=== PATIENT | male | born 1950 | race Caucasian/White ===

== ENCOUNTER 2018-05-04 13:40 | Day surgery (SDC) | payer MEDICARE, OTHER ==
[2018-04-29 11:16] VITALS: BMI 34.7
[~2018-05-04 13:40] MED LIST: DEXAMETHASONE SOD PHOSPHATE 10 MG/ML 1 ML VIAL IV ONE; HYDROmorphone 0.5 MG/0.5 ML SYRINGE IVP PRN; LACTATED RINGERS 1,000 ML IV SCH; LIDOCAINE 1% 20 ML VIAL (10MG/ML) FOR IV START INTRADERMA PRN; ONDANSETRON 4 MG/2 ML VIAL IVP ONE; SCOPOLAMINE 1.5MG/72HR PATCH TRANSDERM ONE
[2018-05-04 13:54] VITALS: RESP 16
[2018-05-04] MEDS ORDERED: LIDOCAINE 1% INJ 10MG/ML (20 ML MDV) ONE (14:08)
[2018-05-04] MEDS ORDERED: PROPOFOL 10 MG/ML 20 ML VIAL IV ONE (14:08)
--- NOTE | 2018-05-04 14:14 | P.GSHP ---
History of Present Illness H&P Date: 05/04/18 Chief Complaint: Screening colonoscopy This a 68-year-old male referred from Dr. Hernandez. Patient's today for screening colonoscopy. He denies a significant GI complaints. Past Medical History Past Medical History: No Reported History History of Any Multi-Drug Resistant Organisms: None Reported Past Surgical History: Hernia Repair Additional Past Surgical History / Comment(s): Eye surgery, colonoscopy. Past Anesthesia/Blood Transfusion Reactions: No Reported Reaction Smoking Status: Former smoker - Past Family History Mother Additional Family Medical History / Comment(s): ? Medications and Allergies Home Medications Medication Instructions Recorded Confirmed Type Cholecalciferol [Vitamin D3] 1,000 unit PO DAILY 04/29/18 04/29/18 History Glucosam/Julio Cesar-Msm1/C/George/Bosw 1 each PO DAILY 04/29/18 04/29/18 History [Glucosamine-Chondroitin Tablet] Allergies Allergy/AdvReac Type Severity Reaction Status Date / Time amoxicillin Allergy Itching Verified 04/29/18 10:53 Surgical - Exam Vital Signs Pulse Resp BP Pulse Ox 60 16 161/82 97 05/04/18 13:53 05/04/18 13:53 05/04/18 13:53 05/04/18 13:53 - General well developed, no distress - Eyes PERRL - ENT normal pinna - Neck no masses - Respiratory normal expansion - Cardiovascular Rhythm: regular - Abdomen Abdomen: soft, non tender Assessment and Plan Assessment: We'll perform screening colonoscopy.
--- NOTE | 2018-05-04 14:27 | P.OP ---
Date of Procedure: 05/04/18 Preoperative Diagnosis: Screening colonoscopy Postoperative Diagnosis: Diverticulosis Procedure(s) Performed: Colonoscopy Anesthesia: MAC Surgeon: Juan Carlos Lutz Pathology: none sent Condition: stable Disposition: PACU Description of Procedure: The patient's placed on the endoscopy table in the lateral position. He received IV sedation. Digital rectal exam was performed which revealed no rebound. The flexible colonoscope was then placed patient anus passed throughout the entire colon. The ileocecal valve was visualized. The cecum, ascending and transverse colon appeared normal. In the descending and sigmoid colon there was mild diverticulosis. The scope was then brought back the rectum and this appeared normal. Scope was withdrawn for patient.
[2018-05-04 14:53] VITALS: BP 132/84; PULSE 69
== END 2018-05-04 16:05 | disposition home or self-care (01) ==
LOC: ORWHC2ENDO 13:40
PROVIDERS: ATTEND Surgery
DX: Z12.11 Encounter for screening for malignant neoplasm of colon (principal); K57.30 Diverticulosis of large intestine without perforation or abscess without bleeding; Z87.891 Personal history of nicotine dependence; Z88.0 Allergy status to penicillin
CPT/HCPCS: J2001; J2704; G0121

== ENCOUNTER 2019-01-14 20:35 | Emergency (ER) | payer MEDICARE, OTHER ==
[2019-01-14 21:06] VITALS: RESP 18
--- NOTE | 2019-01-14 21:07 | ED ---
Back Pain HPI - General Chief Complaint: Back Pain/Injury Stated Complaint: Back pain Time Seen by Provider: 01/14/19 21:06 Source: patient Limitations: no limitations - History of Present Illness Initial Comments: Chip is a pleasant 68 yo male presents to the emergency department today for reevaluation of low back pain. Patient reports he has a history of chronic back pain with sciatica down the right leg however since midnight last night he's had significant low back pain with burning pain down his left leg. He reports a similar to previous episodes of sciatica but worse. Patient was seen and evaluated at an urgent care earlier today he had x-rays and was told that he likely just has arthritic changes. He was prescribed a muscle relaxer which she took a dose of with no improvement in his symptoms. - Related Data Home Medications Medication Instructions Recorded Confirmed Glucosam/Julio Cesar-Msm1/C/George/Bosw 1 tab PO DAILY 04/29/18 01/14/19 [Glucosamine-Chondroitin Tablet] Cyclobenzaprine [Flexeril] 10 mg PO BID 01/14/19 01/14/19 Dexamethasone 4 mg PO DAILY 01/14/19 01/14/19 Ferrous Sulfate [Iron] 325 mg PO DAILY 01/14/19 01/14/19 Naproxen 375 mg PO BID PRN 01/14/19 01/14/19 Previous Rx's Medication Instructions Recorded Gabapentin [Neurontin] 300 mg PO TID #30 cap 01/14/19 Lidocaine 5% Patch [Lidoderm] 1 patch TOPICAL DAILY #30 patch 01/14/19 Gabapentin [Neurontin] 300 mg PO TID #30 cap 01/15/19 Allergies Allergy/AdvReac Type Severity Reaction Status Date / Time amoxicillin Allergy Itching Verified 01/14/19 20:55 Review of Systems ROS Statement: Those systems with pertinent positive or pertinent negative responses have been documented in the HPI. ROS Other: All systems not noted in ROS Statement are negative. Past Medical History Past Medical History: No Reported History History of Any Multi-Drug Resistant Organisms: None Reported Past Surgical History: Hernia Repair Additional Past Surgical History / Comment(s): Eye surgery, colonoscopy. Past Anesthesia/Blood Transfusion Reactions: No Reported Reaction Past Psychological History: No Psychological Hx Reported Smoking Status: Former smoker - Past Family History Mother Additional Family Medical History / Comment(s): ? General Exam - General Exam Comments Initial Comments: Physical Exam GENERAL: Patient is well-developed and well-nourished. Patient is nontoxic and well-hydrated and is in no distress. HENT: Normocephalic, Atraumatic. EYES: PERRL, EOMI No Conjunctival pallor PULMONARY: Unlabored respirations. No audible rales rhonchi or wheezing was noted. CARDIOVASCULAR: There is a regular rate and rhythm without any murmurs gallops or rubs. strong DP/PT pulses bilaterally ABDOMEN: Soft and nontender with normal bowel sounds. No pulsatile mass No bruit SKIN: Skin is clear with no lesions or rashes and otherwise unremarkable. : Deferred NEUROLOGIC: Patient is alert and oriented x3. Moving all extremities spontaneously Normal gait MUSCULOSKELETAL: Normal extremities with adequate strength and full range of motion. No lower extremity swelling or edema. No calf tenderness. Normal strength bilateral lower extremities PSYCHIATRIC: Normal psychiatric evaluation. Limitations: no limitations Course Vital Signs 01/14/19 01/14/19 01/14/19 20:39 21:05 22:30 Temperature 97.8 F Pulse Rate 75 58 L 65 Respiratory 20 18 18 Rate Blood Pressure 178/80 141/76 145/71 O2 Sat by Pulse 99 95 94 L Oximetry 01/14/19 23:47 Temperature 97.9 F Pulse Rate 55 L Respiratory 18 Rate Blood Pressure 135/71 O2 Sat by Pulse 97 Oximetry Medical Decision Making - Medical Decision Making The patient was seen and evaluated, history obtained from the patient and Patient with sciatic sounding pain No red flags for concerning back pain Labs and imaging ordered Labs and imaging are within normal limits imaging reveals no acute pathology no signs of aortic dissection Patient was reevaluated after morphine reports resolution of his pain. Reports pain is now only 1 out of 10. Patient's feeling much better. At this time I do suspect the patient is suffering from sciatica. Patient will be given a Tylenol 3 starter pack Lidoderm patches here because Flexeril prescribed. Patient was advised to follow-up some sciatica exercises and follow up with primary care physician for possible referral to pain management or spine surgery for persistent symptoms. All questions pertaining care were answered to the best of my ability return parameters were discussed with patient was discharged home in stable condition - Lab Data Result diagrams: 01/14/19 20:55 01/14/19 20:55 Lab Results 01/14/19 01/14/19 01/14/19 Range/Units 20:55 20:55 22:29 WBC 6.5 (3.8-10.6) k/uL RBC 4.77 (4.30-5.90) m/uL Hgb 15.5 (13.0-17.5) gm/dL Hct 44.0 (39.0-53.0) % MCV 92.4 (80.0-100.0) fL MCH 32.5 (25.0-35.0) pg MCHC 35.2 (31.0-37.0) g/dL RDW 14.3 (11.5-15.5) % Plt Count 241 (150-450) k/uL Neutrophils % 82 % Lymphocytes % 15 % Monocytes % 2 % Eosinophils % 1 % Basophils % 0 % Neutrophils # 5.3 (1.3-7.7) k/uL Lymphocytes # 1.0 (1.0-4.8) k/uL Monocytes # 0.1 (0-1.0) k/uL Eosinophils # 0.0 (0-0.7) k/uL Basophils # 0.0 (0-0.2) k/uL Sodium 138 (137-145) mmol/L Potassium 4.7 (3.5-5.1) mmol/L Chloride 105 (98-107) mmol/L Carbon Dioxide 22 (22-30) mmol/L Anion Gap 11 mmol/L BUN 17 (9-20) mg/dL Creatinine 0.81 (0.66-1.25) mg/dL Est GFR (CKD-EPI)AfAm >90 (>60 ml/min/1.73 sqM) Est GFR (CKD-EPI)NonAf >90 (>60 ml/min/1.73 sqM) Glucose 114 H (74-99) mg/dL Calcium 9.6 (8.4-10.2) mg/dL Total Bilirubin 0.6 (0.2-1.3) mg/dL AST 22 (17-59) U/L ALT 23 (21-72) U/L Alkaline Phosphatase 118 (38-126) U/L Total Protein 7.6 (6.3-8.2) g/dL Albumin 4.8 (3.5-5.0) g/dL Urine Color Light Yellow Urine Appearance Clear (Clear) Urine pH 7.5 (5.0-8.0) Ur Specific [place] 1.017 (1.001-1.035) Urine Protein Negative (Negative) Urine Glucose (UA) Negative (Negative) Urine Ketones 1+ H (Negative) Urine Blood Negative (Negative) Urine Nitrite Negative (Negative) Urine Bilirubin Negative (Negative) Urine Urobilinogen <2.0 (<2.0) mg/dL Ur Leukocyte Esterase Negative (Negative) Disposition Clinical Impression: Sciatica Disposition: HOME SELF-CARE Condition: Stable Instructions (If sedation given, give patient instructions): Acute Low Back Pain (ED) Additional Instructions: HOME CARE INSTRUCTIONS: For many people, back pain returns. Since low back pain is rarely dangerous, it is often a condition that people can learn to manage on their own. Please remain active. It is stressful on the back to sit or consulting solution director one place. Do not sit, drive, or consulting solution director one place for more than 30 minutes at a time. Take short walks on level surfaces as soon as pain allows. Try to increase the length of time you walk each day. Do not stay in bed. Resting more than 1 or 2 days can delay your recovery. Do not avoid exercise or work. Your body is made to move. It is not dangerous to be active, even though your back may hurt. Your back will likely heal faster if you return to being active before your pain is gone. Only take [id number] or prescription medicines as directed by your caregiver. Kupx-[id number] medicines to reduce pain and inflammation are often the most helpful. Your caregiver may prescribe muscle relaxant drugs. These medicines help dull your pain so you can more quickly return to your normal activities and healthy exercise. Please avoid driving, operating heavy machinery or making important decisions while on this drug - it can cloud your judgment. Avoid feeling anxious or stressed. Stress increases muscle tension and can worsen back pain. It is important to recognize when you are anxious or stressed and learn ways to manage it. Exercise is a great option. SEEK MEDICAL CARE IF: You have pain that is not relieved with rest or medicine. You have pain that does not improve in 1 week. You have new symptoms. You are generally not feeling well. SEEK IMMEDIATE MEDICAL CARE IF: You have pain that radiates from your back into your legs. You develop new bowel or bladder control problems. You have unusual weakness or numbness in your arms or legs. You develop nausea or vomiting. You develop abdominal pain. You feel faint. Prescriptions: Lidocaine 5% Patch [Lidoderm] 1 patch TOPICAL DAILY #30 patch Gabapentin [Neurontin] 300 mg PO TID #30 cap Gabapentin [Neurontin] 300 mg PO TID #30 cap Is patient prescribed a controlled substance at d/c from ED?: No Referrals: Carlos Cervantes DO [Primary Care Provider] - 1-2 days
[2019-01-14] MEDS ORDERED: MORPHINE SULFATE 4 MG/ML SYRINGE IVP STA (21:21)
[2019-01-14 21:38] LABS: Basophils % (A) 0 %; Eosinophils % (A) 1 %; HGB 15.5 gm/dL (13.0-17.5); Lymphocytes % (A) 15 %; MCH 32.5 pg (25.0-35.0); MCHC 35.2 g/dL (31.0-37.0); MCV 92.4 fL (80.0-100.0); Mean Platelet Volume 7.6; Monocytes # (A) 0.1 k/uL (0-1.0); Monocytes % (A) 2 %; Neutrophils # (A) 5.3 k/uL (1.3-7.7); Neutrophils % (A) 82 %; Platelet Count 241 k/uL (150-450); RBC 4.77 m/uL (4.30-5.90); RDW 14.3 % (11.5-15.5); WBC 6.5 k/uL (3.8-10.6)
[2019-01-14 21:46] LABS: ALT 23 U/L (21-72); AST 22 U/L (17-59); African American GFR (CKD) >90 (>60 ml/min/1.73 sqM); Albumin 4.8 g/dL (3.5-5.0); Alkaline Phosphatase 118 U/L (38-126); Anion Gap 11 mmol/L; Blood Urea Nitrogen 17 mg/dL (9-20); Calcium 9.6 mg/dL (8.4-10.2); Carbon Dioxide 22 mmol/L (22-30); Chloride 105 mmol/L (98-107); Glucose 114 mg/dL (74-99); Potassium 4.7 mmol/L (3.5-5.1); Sodium 138 mmol/L (137-145); Total Bilirubin 0.6 mg/dL (0.2-1.3); Total Protein 7.6 g/dL (6.3-8.2)
[2019-01-14 22:36] LABS: Appearance,Urine Clear (Clear); Bilirubin,Urine Negative (Negative); Blood,Urine Negative (Negative); Color,Urine Light Yellow; Glucose,Urine (UA) Negative (Negative); Ketones,Urine 1+ (Negative); Leukocyte Esterase,Urine Negative (Negative); Nitrite,Urine Negative (Negative); PH, Urine 7.5 (5.0-8.0); Protein,Urine Negative (Negative); Specific Gravity,Urine 1.017 (1.001-1.035); Urobilinogen,Urine <2.0 mg/dL (<2.0)
--- NOTE | 2019-01-14 23:15 | CT ---
EXAM: CT Angiography Abdomen and Pelvis With Intravenous Contrast CLINICAL HISTORY: ITS.REASON CT Reason: Pain TECHNIQUE: Axial computed tomographic angiography images of the abdomen and pelvis with intravenous contrast. CTDI is 36.4 mGy and DLP is 2883.2 mGy-cm. This CT exam was performed using one or more of the following dose reduction techniques: automated exposure control, adjustment of the mA and/or kV according to patient size, and/or use of iterative reconstruction technique. MIP reconstructed images were created and reviewed. COMPARISON: None. FINDINGS: VASCULATURE: Aorta: Mild atherosclerosis in the abdominal pelvic vasculature. No abdominal aortic aneurysm. No dissection. Celiac trunk and mesenteric arteries: No acute findings. No occlusion or significant stenosis. Renal arteries: No acute findings. No occlusion or significant stenosis. Iliac arteries: No acute findings. No occlusion or significant stenosis. Lung bases: Unremarkable. No mass. No consolidation. ABDOMEN: Liver: 1.6 cm cyst in the left lobe of the liver. Gallbladder and bile ducts: Unremarkable. No calcified stones. No ductal dilation. Pancreas: Unremarkable. No ductal dilation. No mass. Spleen: Unremarkable. No splenomegaly. Adrenals: Unremarkable. No mass. Kidneys and ureters: Unremarkable. No hydronephrosis. No solid mass. Stomach and bowel: Colonic diverticulosis without evidence of acute diverticulitis. No obstruction. PELVIS: Appendix: No findings to suggest acute appendicitis. Bladder: Unremarkable. No mass. Reproductive: Enlarged prostate gland. ABDOMEN and PELVIS: Intraperitoneal space: Unremarkable. No significant fluid collection. No free air. Bones/joints: No acute fracture. No dislocation. Soft tissues: Postsurgical change related to prior left inguinal hernia repair. Lymph nodes: Unremarkable. No enlarged lymph nodes. IMPRESSION: 1. No evidence of aortic dissection, aneurysm, or occlusion. 2. Colonic diverticulosis without evidence of acute diverticulitis. EXAM: CT Angiography of the Right Lower Extremity With Intravenous Contrast CLINICAL HISTORY: ITS.REASON CT Reason: Pain TECHNIQUE: Axial computed tomographic angiography images of the right lower extremity with intravenous contrast using CT angiography protocol. CTDI is 36.4 mGy and DLP is 2883.2 mGy-cm. This CT exam was performed using one or more of the following dose reduction techniques: automated exposure control, adjustment of the mA and/or kV according to patient size, and/or use of iterative reconstruction technique. MIP reconstructed images were created and reviewed. COMPARISON: None. FINDINGS: VASCULATURE: Right femoral/popliteal arteries: No acute findings. No occlusion or significant stenosis. Right calf/foot arteries: No acute findings. No occlusion or significant stenosis. Other arteries: Arteries of the right lower extremity are well opacified to the level of the mid tibia/fibula. Evaluation of the arteries distal to this is limited by contrast bolus timing. LOWER EXTREMITY: Bones/joints: Mild tricompartmental arthrosis of the knee. No acute fracture. No dislocation. Soft tissues: Unremarkable. No abnormal contrast enhancement. IMPRESSION: No arterial dissection or occlusion identified in the right lower extremity. EXAM: CT Angiography of the Left Lower Extremity With Intravenous Contrast CLINICAL HISTORY: ITS.REASON CT Reason: Pain TECHNIQUE: Axial computed tomographic angiography images of the left lower extremity with intravenous contrast using CT angiography protocol. CTDI is 36.4 mGy and DLP is 2883.2 mGy-cm. This CT exam was performed using one or more of the following dose reduction techniques: automated exposure control, adjustment of the mA and/or kV according to patient size, and/or use of iterative reconstruction technique. MIP reconstructed images were created and reviewed. COMPARISON: None. FINDINGS: VASCULATURE: Left femoral/popliteal arteries: No acute findings. No occlusion or significant stenosis. Left calf/foot arteries: No acute findings. No occlusion or significant stenosis. Other arteries: Arteries of the left lower extremity are wall opacified to the level of the mid tibia/fibula. Evaluation of the arteries distal to this is limited by contrast bolus timing. LOWER EXTREMITY: Bones/joints: Mild tricompartmental arthrosis of the knee. Chronic fracture deformity of the mid tibia/fibula. No dislocation. Soft tissues: Unremarkable. No abnormal contrast enhancement. IMPRESSION: No arterial dissection or occlusion identified in the left lower extremity. EXAM: CT Angiography Chest Without And With Intravenous Contrast CLINICAL HISTORY: ITS.REASON CT Reason: Pain TECHNIQUE: Axial computed tomographic angiography images of the chest without and with intravenous contrast using pulmonary embolism protocol. CTDI is 36. 4 mGy and DLP is 2883.2 mGy-cm. This CT exam was performed using one or more of the following dose reduction techniques: automated exposure control, adjustment of the mA and/or kV according to patient size, and/or use of iterative reconstruction technique. MIP reconstructed images were created and reviewed. COMPARISON: None. FINDINGS: Pulmonary arteries: Unremarkable. No pulmonary embolism. Aorta: No acute findings. No thoracic aortic aneurysm. Lungs: Unremarkable. No mass. No consolidation. Pleural space: Unremarkable. No significant effusion. No pneumothorax. Heart: Unremarkable. No cardiomegaly. No significant pericardial effusion. No evidence of RV dysfunction. Bones/joints: Multilevel degenerative changes seen in the thoracic spine. No acute fracture. No dislocation. Soft tissues: Unremarkable. Lymph nodes: Unremarkable. No enlarged lymph nodes. IMPRESSION: 1. No aortic dissection, aneurysm, or occlusion. 2. No pulmonary embolism.
--- NOTE | 2019-01-14 23:18 | CT ---
EXAM: CT Lumbar Spine Without Intravenous Contrast CLINICAL HISTORY: ITS.REASON CT Reason: Pain TECHNIQUE: Axial computed tomography images of the lumbar spine without intravenous contrast. CTDI is 14.3 mGy and DLP is 1032.8 mGy-cm. This CT exam was performed using one or more of the following dose reduction techniques: automated exposure control, adjustment of the mA and/or kV according to patient size, and/or use of iterative reconstruction technique. COMPARISON: None. FINDINGS: Vertebrae: Diffusely decreased osseous mineralization. No acute fracture. Discs/spinal canal/neural foramina: Multilevel degenerative disc disease and facet arthrosis is seen throughout the lumbar spine which yields varying degrees of foraminal narrowing. There is no high-grade spinal canal stenosis. Soft tissues: Unremarkable. IMPRESSION: 1. No fracture or traumatic malalignment of the lumbar spine. 2. Multilevel degenerative change of the lumbar spine with varying degrees of foraminal narrowing. No high-grade spinal canal stenosis. Consider evaluation with MRI as clinically warranted.
[2019-01-14] MEDS ORDERED: ACET/COD 300 MG/30 MG STARTER PACK 6 TAB BTL PO STA (23:42)
[2019-01-14 23:49] VITALS: BP 135/71; PULSE 55; TEMP 97.9
== END 2019-01-15 00:04 | disposition home or self-care (01) ==
LOC: EC 20:35
DX: M54.41 Lumbago with sciatica, right side (principal); M54.42 Lumbago with sciatica, left side; Z79.899 Other long term (current) drug therapy; Z88.0 Allergy status to penicillin; Z87.891 Personal history of nicotine dependence
CPT/HCPCS: 36415; 80053; 85025; 81003; 72131; 75635; 99284; 96374; J2270; Q9967

== ENCOUNTER → 2019-02-04 | Outpatient (CLI) | payer MEDICARE, OTHER ==
--- NOTE | 2019-02-04 08:22 | XR ---
EXAMINATION TYPE: XR orbit complete bilateral , 3 VIEWS DATE OF EXAM ORDERED: 02/04/2019 HISTORY: Pre-MRI screening. COMPARISON: None. FINDINGS: The ovaries have a normal appearance. No radiopaque foreign body is seen. IMPRESSION: I DO NOT SEE A CONTRAINDICATION MRI IN THIS PATIENT.
--- NOTE | 2019-02-04 15:03 | MR ---
EXAMINATION TYPE: MR lumbar spine wo con DATE OF EXAM: 02/04/2019 COMPARISON: None HISTORY: Sciatica, left side / Back pain TECHNIQUE: Multiplanar, multisequence images of the lumbar spine were acquired. Lumbar vertebra have normal alignment. There is some degenerative disc space narrowing throughout the lumbar spine and more severe at L4-5 L5-S1. There are small posterior disc herniations from L2 to S1 . There is mild hypertrophic facet arthropathy in the lower lumbar spine. Sacroiliac joints appear in tact. There is no lumbar paraspinal mass. There is no compression fracture. There is mild right side L4-5 L5-S1 neural foraminal narrowing due to facet arthropathy and disc space narrowing. There is sim ilar mild change on the left side. I see no focal bone destruction. IMPRESSION: Multilevel spondylotic changes. Multilevel posterior mild lumbar disc herniations. L4-5 disc herniati on is slightly larger. There is some facet arthropathy and mild relative spinal stenosis at L4-5 rela zafar to disc herniation and facet disease.
== END | disposition home or self-care (01) ==
LOC: RADMRIMAIN 07:42
PROVIDERS: ATTEND Family Medicine
DX: M48.061 Spinal stenosis, lumbar region without neurogenic claudication (principal); M51.26 Other intervertebral disc displacement, lumbar region; M47.816 Spondylosis without myelopathy or radiculopathy, lumbar region; M46.96 Unspecified inflammatory spondylopathy, lumbar region; Z01.818 Encounter for other preprocedural examination
CPT/HCPCS: 70200; 72148

== ENCOUNTER → 2021-10-23 | Outpatient (CLI) | payer MEDICARE | END | disposition home or self-care (01) | LOC: LABWHC1 11:42 | PROVIDERS: ATTEND Urology | DX: R97.20 Elevated prostate specific antigen [PSA] (principal) | CPT/HCPCS: 36415; 84153 ==

== ENCOUNTER → 2023-01-04 | Outpatient (CLI) | payer MEDICARE ==
--- NOTE | 2023-01-07 12:11 | MR ---
EXAMINATION TYPE: MR knee RT wo con DATE OF EXAM: 01/04/2023 COMPARISON: None HISTORY: Right knee pain, no trauma. TECHNIQUE: Multiplanar, multisequence imaging of the right knee is performed without IV contrast. FINDINGS: MEDIAL MENISCUS: Horizontal tear posterior horn medial meniscus. Medial displacement of the meniscal body. Anterior horn is intact. LATERAL MENISCUS: Undersurface oblique tear posterior horn lateral meniscus. Anterior horn is intact. CRUCIATE LIGAMENTS: The anterior and posterior cruciate ligaments are intact and unremarkable. COLLATERAL LIGAMENTS: The medial collateral ligament and lateral collateral ligament complex are inta ct and unremarkable. EXTENSOR MECHANISM: Visualized quadriceps and patellar tendons are intact. EFFUSION: No significant suprapatellar joint effusion. POPLITEAL CYST: No popliteal/avila cyst. TRICOMPARTMENT SPACES: Moderate degenerative narrowing medial tibiofemoral joint space with cartilagi nous thinning and mild subchondral cyst formation. Mild reactive bone marrow edema. Spur formation se en about the margins of the femoral condyles and tibial plateaus. BONE MARROW SIGNAL: No focal abnormal marrow signal is appreciated. OTHER: No additional significant abnormality is appreciated. IMPRESSION: 1.Horizontal tear posterior horn medial meniscus. Medial displacement of the meniscal body 2.Undersurface oblique tear posterior horn lateral meniscus.
== END | disposition home or self-care (01) ==
LOC: RADMRIMAIN 10:51
PROVIDERS: ATTEND Orthopaedic Surgery
DX: M23.221 Derangement of posterior horn of medial meniscus due to old tear or injury, right knee (principal); M23.351 Other meniscus derangements, posterior horn of lateral meniscus, right knee

== ENCOUNTER 2023-02-17 08:03 | Day surgery (SDC) | payer MEDICARE ==
[2023-02-11 14:40] VITALS: BMI 31.7
--- NOTE | 2023-02-16 13:46 | HP ---
HISTORY AND PHYSICAL DATE OF ANTICIPATED SURGERY: 02/17/2023. HISTORY OF PRESENT ILLNESS: Chip Peterson is a 73-year-old gentleman seen with progressive right knee pain. After treatment options were discussed, he elected to proceed with right knee arthroscopy. Consent was obtained. PAST MEDICAL HISTORY: Hyperlipidemia. PAST SURGICAL HISTORY: Noncontributory. DAILY MEDICATIONS: Rosuvastatin. ALLERGIES: Amoxicillin. SOCIAL HISTORY: Denies tobacco use. PHYSICAL EVALUATION OF RIGHT KNEE: Range of motion is 0 to 130 degrees, mild effusion. Tenderness along the medial and lateral joint lines. Positive medial Sofia's, positive lateral Sofia's. Ligaments stable. Hip rotation is without pain. Distal neurovascular exam is intact. RADIOGRAPHS: Radiographs of the right knee reveal moderate osteoarthritis. MRI right knee revealed medial and lateral meniscal tears. IMPRESSION: 1. Internal derangement of right knee with medial and lateral meniscal tears. 2. Hyperlipidemia. PLAN: Right knee arthroscopy with partial medial/lateral meniscectomy and debridement. MMODL / IJN: [id number] /
[~2023-02-17 08:03] MED LIST changes: -DEXAMETHASONE SOD PHOSPHATE 10 MG/ML 1 ML VIAL IV ONE; +DEXAMETHASONE SOD PHOSPHATE 4 MG/ML 1 ML VIAL IV ONE; -HYDROmorphone 0.5 MG/0.5 ML SYRINGE IVP PRN; -LIDOCAINE 1% 20 ML VIAL (10MG/ML) FOR IV START INTRADERMA PRN; -SCOPOLAMINE 1.5MG/72HR PATCH TRANSDERM ONE
[2023-02-17 08:36] VITALS: RESP 18
[2023-02-17] MEDS ORDERED: fentaNYL (PF) 50 MCG/ML 2 ML AMP ONE (09:05)
[2023-02-17] MEDS ORDERED: PROPOFOL 10 MG/ML 20 ML VIAL IV ONE (09:05)
[2023-02-17] MEDS ORDERED: MIDAZOLAM 2 MG/2 ML VIAL ONE (09:05)
[2023-02-17] MEDS ORDERED: LIDOCAINE 2% INJ 20 MG/ML (2 ML VIAL) ONE (09:05)
[2023-02-17] MEDS ORDERED: BUPIVACAINE (PF) 0.25% 30 ML VIAL SQ ONE ×2 (09:28→09:40)
--- NOTE | 2023-02-17 10:02 | P.OP ---
Date of Procedure: 02/17/23 Preoperative Diagnosis: Internal derangement right knee Postoperative Diagnosis: 1. Tear medial and lateral meniscus right knee 2. 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 Reactive synovitis medial, lateral and patellar compartments right knee Procedure(s) Performed: 1. Arthroscopic partial medial and lateral meniscectomy right knee 2. Arthroscopic microfracture medial tibial plateau right knee 3. Arthroscopic partial synovectomy medial, lateral and suprapatellar compartments right knee Anesthesia: GETA, local Surgeon: Jason Cedeño Estimated Blood Loss (ml): 7 Pathology: none sent Condition: stable Disposition: PACU Indications for Procedure: 73-year-old patient who was seen with progressive right knee pain. After having treatment options discussed, he elected to proceed with arthroscopy. Operative Findings: see description of procedure Description of Procedure: Patient was taken to the operative suite. Patient underwent a general anesthetic by the department of anesthesia. Patient was given preoperative antibiotics. The right lower extremity was placed in a well-padded arthroscopic leg hsu. The right leg was prepped and draped in the normal sterile orthopedic fashion. A lateral parapatellar and suprapatellar incision was made. Trochars were inserted. Arthroscopy was initiated. Suprapatellar pouch revealed diffuse thick reactive synovitis. The patellofemoral joint appeared to articulate congruently. There was grade 2 chondromalacia of the patellofemoral joint without significant osteochondral tears. The scope was guided into the medial gutter. No loose bodies or plica were identified. The scope was then guided into the medial compartment. A medial parapatellar incision was made. Trocar inserted followed by probe. There was a complex tear involving the posterior horn and midbody medial meniscus. There were grade 3/4 chondromalacia changes on the medial aspect of the medial tibial plateau and grade 3 chondromalacia changes of the medial femoral condyle. There was thick reactive synovitis anteriorly. I performed a partial medial meniscectomy getting down to stable meniscal tissue. I performed a partial synovectomy decompressing the reactive synovitis. I did note an area of exposed bone along the medial tibial plateau. I introduced a microfracture awl and I performed a microfracture to that area penetrating the bone with resultant bleeding at the microfracture site. The residual meniscus was probed and was found to be stable. There was good decompression of the synovitis. Scope and probe were then guided into the intercondylar notch. Cruciates were identified, probed and found to be stable. The scope and probe were then guided into lateral compartment. There was a radial tear involving the midbody lateral meniscus. There were grade 1 chondromalacia changes of the lateral compartment with no tears. There was thick reactive synovitis anteriorly. I performed a partial lateral meniscectomy down to stable meniscal tissue. I performed a partial synovectomy decompressing reactive synovitis. The residual meniscus was probed and was found to be stable. There was good decompression of the synovitis. The scope was in guided back into the suprapatellar compartment. I introduced a motorized shaver into the suprapatellar compartment. I debrided some piecemeal fragments of meniscus that I encountered. I performed a partial synovectomy decompressing reactive synovitis. There was good decompression of the synovitis. I now took one more look around the entire knee, no residual debris. Instruments were now removed from the joint. The joint was infiltrated with .25% Marcaine. Steri-Strips were applied to the portal sites. Sterile dressings were applied. The patient was placed into a NANCY hose. No tourniquet was utilized. The patient was awakened, transferred to a bed and taken to recovery stable satisfactory condition.
[2023-02-17] MEDS: HYDROmorphone 0.5 MG/0.5 ML SYRINGE IVP PRN ×2 (10:06→10:16)
[2023-02-17 10:09] VITALS: TEMP 97.1
[2023-02-17 11:20] VITALS: BP 156/92; PULSE 50
== END 2023-02-17 11:22 | disposition home or self-care (01) ==
LOC: OR 08:03
PROVIDERS: ATTEND Orthopaedic Surgery
DX: S83.281A Other tear of lateral meniscus, current injury, right knee, initial encounter (principal); S83.241A Other tear of medial meniscus, current injury, right knee, initial encounter; M94.261 Chondromalacia, right knee; M65.861 Other synovitis and tenosynovitis, right lower leg; E78.5 Hyperlipidemia, unspecified; M17.11 Unilateral primary osteoarthritis, right knee; M25.461 Effusion, right knee; Z88.0 Allergy status to penicillin; X58.XXXA Exposure to other specified factors, initial encounter; Z79.899 Other long term (current) drug therapy
CPT/HCPCS: 29880; 29879; 29876; J2250; J1100; J0690; J2405; J3010; J2704; J1170; J2001; J0665

== ENCOUNTER 2023-02-21 21:10 | Observation (INO) | payer MEDICARE ==
[2023-02-21] MEDS ORDERED: HYDROmorphone 1 MG/ML 1 ML SYRINGE IM STA (21:46)
[2023-02-21] MEDS ORDERED: HYDROmorphone 1 MG/ML 1 ML SYRINGE IVP STA ×2 (21:47→22:58)
--- NOTE | 2023-02-21 22:15 | ED ---
General Adult HPI - General Chief complaint: Extremity Problem,Nontraumatic Stated complaint: Post-Op Complications, Right Knee Swelling, Pain Time Seen by Provider: 02/21/23 21:39 Source: patient, family, RN notes reviewed, old records reviewed Mode of arrival: wheelchair Limitations: no limitations - History of Present Illness Initial comments: 73-year-old male with right knee pain and right calf pain. Patient is 4 days status post arthroscopic right knee surgery. He also was diagnosed with DVT earlier today and was started on Eliquis. He's had significant pain in the knee and right calf. Patient currently taking Tylenol 3 without relief. No injury. No fever. No chest pain or dyspnea. - Related Data Home Medications Medication Instructions Recorded Confirmed Glucosam/Julio Cesar-Msm1/C/George/Bosw 1 tab PO DAILY 04/29/18 02/17/23 [Glucosamine-Chondroitin Tablet] Rosuvastatin Calcium 5 mg PO HS 02/11/23 02/17/23 Previous Rx's Medication Instructions Recorded traMADol HCl [Ultram] 50 mg PO Q6H PRN #12 tab 02/17/23 Apixaban [Eliquis Starter Pack 5 - 10 mg PO DIRECTED 30 Days 02/21/23 (for VTE)] #1 each Apixaban [Eliquis] 5 mg PO BID #60 tab 02/21/23 HYDROcodone/APAP 5-325MG [[place] 1 tab PO Q6HR PRN #20 tab 02/21/23 5-325] Allergies Allergy/AdvReac Type Severity Reaction Status Date / Time amoxicillin Allergy Itching Verified 02/21/23 21:30 Review of Systems ROS Statement: Those systems with pertinent positive or pertinent negative responses have been documented in the HPI. ROS Other: All systems not noted in ROS Statement are negative. Past Medical History Past Medical History: No Reported History History of Any Multi-Drug Resistant Organisms: None Reported Past Surgical History: Orthopedic Surgery Additional Past Surgical History / Comment(s): Eye surgery, colonoscopy. Past Anesthesia/Blood Transfusion Reactions: No Reported Reaction Past Psychological History: No Psychological Hx Reported Smoking Status: Former smoker Past Alcohol Use History: None Reported Past Drug Use History: None Reported - Past Family History Mother Additional Family Medical History / Comment(s): ? General Exam Limitations: no limitations General appearance: alert, in no apparent distress Head exam: Present: atraumatic, normocephalic Eye exam: Present: normal appearance, PERRL ENT exam: Present: normal exam Neck exam: Present: normal inspection. Absent: tenderness, meningismus Respiratory exam: Present: normal lung sounds bilaterally. Absent: respiratory distress, wheezes Cardiovascular Exam: Present: regular rate, normal rhythm GI/Abdominal exam: Present: soft. Absent: distended, tenderness Extremities exam: Present: joint swelling (Moderate swelling to the right knee. Distal pulses intact.) Neurological exam: Present: alert, oriented X3, CN II-XII intact. Absent: motor sensory deficit Psychiatric exam: Present: anxious Skin exam: Present: warm, dry, intact Course Vital Signs 02/21/23 21:29 Temperature 98.1 F Pulse Rate 74 Respiratory 18 Rate Blood Pressure 146/79 O2 Sat by Pulse 99 Oximetry Medical Decision Making - Medical Decision Making Was pt. sent in by a medical professional or institution (Dr. PA, [employer], urgent care, hospital, or penitentiary...) When possible be specific @ -[No] Did you speak to anyone other than the patient for history (EMS, parent, family, police, friend...)? What history was obtained from this source @ -[No] Did you review nursing and triage notes (agree or disagree)? Why? @ -[I reviewed and agree with nursing and triage notes] Were old charts reviewed (outside hosp., previous admission, EMS record, old EKG, old radiological studies, urgent care reports/EKG's, penitentiary records)? Report findings @ -[No old charts were reviewed] Differential Diagnosis (chest pain, altered mental status, abdominal pain women, abdominal pain men, vaginal bleeding, weakness, fever, dyspnea, syncope, headache, dizziness, GI bleed, back pain, seizure, CVA, palpatations, mental health, musculoskeletal)? @ -[Differential Musculoskeletal Muscular strain, contusion, ligament sprain, fracture, arthritis, septic arthritis, bursitis, cellulitis, muscle spasm, nerve compression, DVT, arterial occlusion, herpes zoster, electrolyte abnormality, tumor.... This is not meant to be in all inclusive list EKG interpreted by me (3pts min.). @ -[As above] X-rays interpreted by me (1pt min.). @ -Knee x-ray negative for fracture dislocation, shows joint effusion. CT interpreted by me (1pt min.). @ -[None done] U/S interpreted by me (1pt. min.). @ -[None done] What testing was considered but not performed or refused? (CT, X-rays, U/S, labs)? Why? @ -[None] What meds were considered but not given or refused? Why? @ -[None] Did you discuss the management of the patient with other professionals (professionals i.e. DrKalina, PA, [employer], lab, RT, psych nurse, social media analyst, erp specialist, teacher, commercial loan collection officer, insurance case manager)? Give summary @ -[place] covering for Dr. Cedeño, requests admission to medicine with orthopedics on consult. [facility] Was smoking cessation discussed for >3mins.? @ -[No] Was critical care preformed (if so, how long)? @ -[No] Were there social determinants of health that impacted care today? How? (Homelessness, low income, unemployed, alcoholism, drug addiction, transportation, low edu. Level, literacy, decrease access to med. care, shelter, rehab)? @ -[No] Was there de-escalation of care discussed even if they declined (Discuss DNR or withdrawal of care, Hospice)? DNR status @ -[No] What co-morbidities impacted this encounter? (DM, HTN, Smoking, COPD, CAD, Cancer, CVA, ARF, Chemo, Hep., AIDS, mental health diagnosis, sleep apnea, morbid obesity)? @ -[Recent arthroscopic knee procedure, DVT Was patient admitted / discharged? Hospital course, mention meds given and route, prescriptions, significant lab abnormalities, going to OR and other pertinent info. @ -73-year-old male with right knee pain and calf pain. Patient does have known DVT and is on Eliquis. He's had recent arthroscopic knee procedure 4 days prior. His leg does appear to be appropriate postoperative changes. He has 2+ DP and PT pulses. There is no erythema. Patient's given IV pain medication minimal relief in his pain symptoms. Patient's pain is unable to be controlled in the emergency department. He will be admitted for pain control. Undiagnosed new problem with uncertain prognosis? @ -[No] Drug Therapy requiring intensive monitoring for toxicity (Heparin, Nitro, Insulin, Cardizem)? @ -[No] Were any procedures done? @ -[No] Diagnosis/symptom? @ -DVT, knee pain status post arthroscopic procedure Acute, or Chronic, or Acute on Chronic? @ -Acute Uncomplicated (without systemic symptoms) or Complicated (systemic symptoms)? @ -[default] Side effects of treatment? @ -[No] Exacerbation, Progression, or Severe Exacerbation? @ -[No] Poses a threat to life or bodily function? How? (Chest pain, USA, VT, pneumonia, PE, COPD, DKA, ARF, appy, cholecystitis, CVA, Diverticulitis, Homicidal, Suicidal, threat to staff... and all critical care pts) @ -[Low risk at this time - Lab Data Result diagrams: 02/21/23 21:50 02/21/23 21:50 Lab Results 02/21/23 02/21/23 02/21/23 Range/Units 21:50 21:50 22:00 WBC 10.8 H (3.8-10.6) k/uL RBC 4.68 (4.30-5.90) m/uL Hgb 14.9 (13.0-17.5) gm/dL Hct 43.6 (39.0-53.0) % MCV 93.2 (80.0-100.0) fL MCH 31.8 (25.0-35.0) pg MCHC 34.2 (31.0-37.0) g/dL RDW 12.3 (11.5-15.5) % Plt Count 265 (150-450) k/uL MPV 8.0 Neutrophils % 77 % Lymphocytes % 17 % Monocytes % 5 % Eosinophils % 0 % Basophils % 0 % Neutrophils # 8.3 H (1.3-7.7) k/uL Lymphocytes # 1.9 (1.0-4.8) k/uL Monocytes # 0.5 (0-1.0) k/uL Eosinophils # 0.0 (0-0.7) k/uL Basophils # 0.0 (0-0.2) k/uL Sodium 134 L (137-145) mmol/L Potassium 4.2 (3.5-5.1) mmol/L Chloride 101 (98-107) mmol/L Carbon Dioxide 18 L (22-30) mmol/L Anion Gap 15 mmol/L BUN 20 (9-20) mg/dL Creatinine 0.87 (0.66-1.25) mg/dL Est GFR (CKD-EPI)AfAm >90 (>60 ml/min/1.73 sqM) Est GFR (CKD-EPI)NonAf 85 (>60 ml/min/1.73 sqM) Glucose 114 H (74-99) mg/dL Lactic Ac Sepsis Rflx Plasma Lactic Acid Felix 4.7 H* (0.7-2.0) mmol/L Calcium 9.5 (8.4-10.2) mg/dL Total Bilirubin 1.3 (0.2-1.3) mg/dL AST 32 (17-59) U/L ALT 23 (4-49) U/L Alkaline Phosphatase 117 (38-126) U/L Creatine Kinase 218 H (55-170) U/L Total Protein 7.2 (6.3-8.2) g/dL Albumin 4.7 (3.5-5.0) g/dL 02/21/23 Range/Units 23:03 WBC (3.8-10.6) k/uL RBC (4.30-5.90) m/uL Hgb (13.0-17.5) gm/dL Hct (39.0-53.0) % MCV (80.0-100.0) fL MCH (25.0-35.0) pg MCHC (31.0-37.0) g/dL RDW (11.5-15.5) % Plt Count (150-450) k/uL MPV Neutrophils % % Lymphocytes % % Monocytes % % Eosinophils % % Basophils % % Neutrophils # (1.3-7.7) k/uL Lymphocytes # (1.0-4.8) k/uL Monocytes # (0-1.0) k/uL Eosinophils # (0-0.7) k/uL Basophils # (0-0.2) k/uL Sodium (137-145) mmol/L Potassium (3.5-5.1) mmol/L Chloride (98-107) mmol/L Carbon Dioxide (22-30) mmol/L Anion Gap mmol/L BUN (9-20) mg/dL Creatinine (0.66-1.25) mg/dL Est GFR (CKD-EPI)AfAm (>60 ml/min/1.73 sqM) Est GFR (CKD-EPI)NonAf (>60 ml/min/1.73 sqM) Glucose (74-99) mg/dL Lactic Ac Sepsis Rflx Y Plasma Lactic Acid Felix (0.7-2.0) mmol/L Calcium (8.4-10.2) mg/dL Total Bilirubin (0.2-1.3) mg/dL AST (17-59) U/L ALT (4-49) U/L Alkaline Phosphatase (38-126) U/L Creatine Kinase (55-170) U/L Total Protein (6.3-8.2) g/dL Albumin (3.5-5.0) g/dL Disposition Clinical Impression: Right leg pain, Right leg DVT Disposition: ADMITTED IP TO THIS [facility] Condition: Stable Is patient prescribed a controlled substance at d/c from ED?: No Referrals: Carlos Cervantes DO [Primary Care Provider] - 1-2 days Jason Cedeño DO [Doctor of Osteopathic Medicine] - 1-2 days Time of Disposition: 01:09
[2023-02-21 22:21] LABS: Basophils % (A) 0 %; Eosinophils % (A) 0 %; HCT 43.6 % (39.0-53.0); HGB 14.9 gm/dL (13.0-17.5); Lymphocytes # (A) 1.9 k/uL (1.0-4.8); Lymphocytes % (A) 17 %; MCH 31.8 pg (25.0-35.0); MCHC 34.2 g/dL (31.0-37.0); MCV 93.2 fL (80.0-100.0); Monocytes # (A) 0.5 k/uL (0-1.0); Monocytes % (A) 5 %; Neutrophils # (A) 8.3 k/uL (1.3-7.7); Neutrophils % (A) 77 %; Platelet Count 265 k/uL (150-450); RBC 4.68 m/uL (4.30-5.90); RDW 12.3 % (11.5-15.5); WBC 10.8 k/uL (3.8-10.6)
--- NOTE | 2023-02-21 22:39 | XR ---
EXAMINATION TYPE: XR knee complete RT DATE OF EXAM: 02/21/2023 CLINICAL HISTORY: Diagnosed with DVT yesterday with severe pain. Had scope in right knee 4 days ago TECHNIQUE: Three views of the right knee are obtained. COMPARISON: Right knee x-ray December 22, 2022 FINDINGS: There is no acute fracture/dislocation evident in the right knee. Tricompartment degenerat turner changes redemonstrated with moderate narrowing patellofemoral and medial tibiofemoral compartment s again seen. Moderate spurring medial tibiofemoral compartment redemonstrated. Large suprapatellar j oint effusion is present on current study and more prominent from prior. IMPRESSION: As above.
[2023-02-21 22:58] LABS: ALT 23 U/L (4-49); AST 32 U/L (17-59); African American GFR (CKD) >90 (>60 ml/min/1.73 sqM); Albumin 4.7 g/dL (3.5-5.0); Alkaline Phosphatase 117 U/L (38-126); Anion Gap 15 mmol/L; Blood Urea Nitrogen 20 mg/dL (9-20); Calcium 9.5 mg/dL (8.4-10.2); Carbon Dioxide 18 mmol/L (22-30); Chloride 101 mmol/L (98-107); Creatine Kinase 218 U/L (55-170); Glucose 114 mg/dL (74-99); Non-African American GFR(CKD) 85 (>60 ml/min/1.73 sqM); Sodium 134 mmol/L (137-145); Total Bilirubin 1.3 mg/dL (0.2-1.3); Total Protein 7.2 g/dL (6.3-8.2)
[2023-02-21 23:22] LABS: Potassium 4.2 mmol/L (3.5-5.1)
[2023-02-21] MEDS ORDERED: SODIUM CHLORIDE 0.9% 500 ML 500 ML IV ONE (23:30)
[2023-02-22] MEDS ORDERED: oxyCODONE-APAP 7.5-325MG 1 EACH TAB PO STA (00:04)
[2023-02-22] MEDS ORDERED: HYDROmorphone 0.5 MG/0.5 ML SYRINGE IVP STA (00:59)
[2023-02-22] MEDS ORDERED: HYDROmorphone 0.5 MG/0.5 ML SYRINGE IVP PRN (01:00)
[2023-02-22] MEDS ORDERED: NALOXONE 0.4 MG/ML 1 ML VIAL IV PRN (01:00)
[2023-02-22] MEDS ORDERED: ACETAMINOPHEN TAB 325 MG TAB PO PRN (01:00)
[2023-02-22] MEDS: SODIUM CHLORIDE 0.9% 1,000 ML IV SCH ×2 (01:52→11:00)
[2023-02-22] MEDS ORDERED: Apixaban Initiation Dose--VTE 5 MG TAB PO SCH (09:00)
[2023-02-22] MEDS ORDERED: HYDROcodone/APAP 7.5-325MG 1 EACH TAB PO PRN (09:41)
--- NOTE | 2023-02-22 09:51 | P.CNOR ---
History of Present Illness - [facility] Consult date: 02/22/23 Consult reason: joint pain (Right knee pain, history of recent right knee arthroscopy) History of present illness: Patient is a 73-year-old male who presented to [facility] on 02/22/2023 with worsening pain and swelling to the right lower extremity. Patient has recently undergone a right knee arthroscopy on 02/17/[address] Cedeño, patient was discharged home in the stable condition. Patient states for the next few days he did very well with ambulation and pain control. On 02/20/2023 developed significant swelling and pain to the calf, he did report a hospital at that time. Patient was diagnosed with a blood clot at that time, he was started on oral anticoagulant and sent home, our orthopedic team was never notified of this. Patient presented back to the hospital on 02/22/2023 with worsening swelling and pain throughout the knee with difficulty with ambulation. I was contacted by the emergency room staff regarding this patient early this morning, pain control was unable to be achieved with IV Dilaudid. I recommended admission to the hospital for pain management and further workup. patient was evaluated at bedside in the emergency room, his was present at bedside. Patient seems very irritable and uncomfortable today resting in bed. The leg is elevated with ice packs at this time. Patient notes most of discomfort in the knee itself at this time, he does have some calf pain. He denies any trauma while at home, like stated above he did well for the first 2 days prior to the swelling in the calf and being diagnosed with a DVT. Tramadol 50 mg along with Tylenol 3 seems to not be doing anything for the pain at this time. Patient did receive multiple doses of IV Dilaudid, he has not been on any consistent oral medication since then. Patient denies any fevers or chills at this time. He denies any other orthopedic complaints at this time. Patient denies headaches, lightheadedness, chest pain or shortness of breath. Review of Systems Constitutional: Reports as per [facility] Past Medical History Past Medical History: No Reported History History of Any Multi-Drug Resistant Organisms: None Reported Past Surgical History: Orthopedic Surgery Additional Past Surgical History / Comment(s): Eye surgery, colonoscopy. Past Anesthesia/Blood Transfusion Reactions: No Reported Reaction Past Psychological History: No Psychological Hx Reported Smoking Status: Former smoker Past Alcohol Use History: None Reported Past Drug Use History: None Reported - Past Family History Mother Additional Family Medical History / Comment(s): ? Medications and Allergies Home Medications Medication Instructions Recorded Confirmed Type Glucosam/Julio Cesar-Msm1/C/George/Bosw 1 tab PO DAILY 04/29/18 02/22/23 History [Glucosamine-Chondroitin Tablet] Rosuvastatin Calcium 5 mg PO HS 02/11/23 02/22/23 History traMADol HCl [Ultram] 50 mg PO Q6H PRN #12 tab 02/17/23 02/22/23 Rx HYDROcodone/APAP 5-325MG [[place] 1 tab PO Q6HR PRN #20 tab 02/21/23 02/22/23 Rx 5-325] Apixaban [Eliquis Starter Pack See Taper PO DIRECTED 02/22/23 02/22/23 History (for VTE)] Allergies Allergy/AdvReac Type Severity Reaction Status Date / Time amoxicillin Allergy Itching Verified 02/22/23 07:48 Physical Examination Right lower extremity: Obvious effusion present on the right knee, generalized swelling throughout the right lower extremity especially in the calf. There are bandages present over the portal sites on the anterior aspect of the knee, there is no erythema noted, there is no drainage noted Notable swelling is present in the extremity, especially the calf. There is some tenderness with palpation to the calf. The compartments of the lower leg both anterior, lateral and posterior all soft and compressible, this is also present in the proximal aspect of the extremity Range of motion is difficult both passive and actively due to swelling and discomfort with regards to the knee. Plantar flexion, dorsiflexion, EHL, FHL are intact Internal and external rotation of the hip reproduces no groin pain Sensory exam light touch is intact throughout the extremity Dorsalis pedis pulses 2+ Results - Labs Labs: Abnormal Lab Results - Last 24 Hours (Table) 02/21/23 02/21/23 02/21/23 Range/Units 21:50 21:50 22:00 WBC 10.8 H (3.8-10.6) k/uL Neutrophils # 8.3 H (1.3-7.7) k/uL Sodium 134 L (137-145) mmol/L Carbon Dioxide 18 L (22-30) mmol/L Glucose 114 H (74-99) mg/dL Plasma Lactic Acid Felix 4.7 H* (0.7-2.0) mmol/L Creatine Kinase 218 H (55-170) U/L H & H 02/21/23 Range/Units 21:50 Hgb 14.9 (13.0-17.5) gm/dL Hct 43.6 (39.0-53.0) % Result Diagrams: 02/21/23 21:50 02/21/23 21:50 - Diagnostic results Knee x-ray: report reviewed, image reviewed (Report and images of the right knee were reviewed from 02/22/2023. Images demonstrate large joint effusion in the suprapatellar region. As her arthritic findings noted throughout the patellofemoral and medial aspect of the joint ) Assessment and Plan Assessment: Right knee pain Right knee effusion Right lower extremity DVT Postoperative day #5 status post right knee arthroscopy Right knee osteoarthritis Other medical comorbidities Plan: I was able to discuss the case consistent with physical exam findings and imagi ng studies my attending Dr. Cedeño. No emergent orthopedic surgical intervention recommended at this time Low concern for a septic arthropathy at this time, elevated white blood cell was noted on his CBC, this is likely reactive Excess swelling in the knee likely related to surgery, patient is also have a notable swelling in the lower extremity likely due to the DVT. Recommending constant icing and elevating Discussed the possibility of an aspiration with cortisone if swelling continues to worsen, we'll reassess Pain control, I did add Flexeril 10 mg twice a day along with [place] 7.5 mg/325 mg DVT prophylaxis, continue current oral anticoagulant Weightbearing status, weight-bear as tolerated. Recommend patient to stay off the leg and continue to elevate until pain is better under control Medical recommendations appreciated Further recommendations to follow Time with Patient: Less than 30
[2023-02-22] MEDS: HYDROmorphone 1 MG/ML 1 ML SYRINGE IVP PRN ×2 (09:54→17:35)
[2023-02-22] MEDS: PANTOPRAZOLE 40 MG/10 ML VIAL IVP SCH (11:40)
[2023-02-22] MEDS: CYCLOBENZAPRINE 10 MG TAB PO SCH ×2 (11:57→20:45)
--- NOTE | 2023-02-22 15:37 | P.HPIM ---
History of Present Illness H&P Date: 02/22/23 Chief Complaint: Right knee pain, recent right knee arthroscopic. Assessment 73-year-old gentleman, recently completed right knee arthroscopy on 02/17/2023. Post surgery patient was also diagnosed with DVT and started on Eliquis prior to admission. Continues to have significant right knee pain, unrelieved with his current pain management regimen and proceeded to the ER. Denies fever or chills. Afebrile, WBC 10.8. Denies chest pain, palpitations or shortness of breath. Maintaining O2 sats in the high 90s on room air. Plasma lactic acid 4.7 on admission, down to 0.8 currently. Creatinine kinase 218. Knee x-ray reported large suprapatellar joint effusion more prominent from prior study. Review of Systems ROS Statement: Those systems with pertinent positive or pertinent negative responses have been documented in the HPI. ROS Other: All systems not noted in ROS Statement are negative. Past Medical History Past Medical History: No Reported History History of Any Multi-Drug Resistant Organisms: None Reported Past Surgical History: Orthopedic Surgery Additional Past Surgical History / Comment(s): Eye surgery, colonoscopy. Past Anesthesia/Blood Transfusion Reactions: No Reported Reaction Past Psychological History: No Psychological Hx Reported Smoking Status: Former smoker Past Alcohol Use History: None Reported Past Drug Use History: None Reported - Past Family History Mother Additional Family Medical History / Comment(s): ? Medications and Allergies Home Medications Medication Instructions Recorded Confirmed Type Glucosam/Julio Cesar-Msm1/C/George/Bosw 1 tab PO DAILY 04/29/18 02/22/23 History [Glucosamine-Chondroitin Tablet] Rosuvastatin Calcium 5 mg PO HS 02/11/23 02/22/23 History traMADol HCl [Ultram] 50 mg PO Q6H PRN #12 tab 02/17/23 02/22/23 Rx HYDROcodone/APAP 5-325MG [[place] 1 tab PO Q6HR PRN #20 tab 02/21/23 02/22/23 Rx 5-325] Apixaban [Eliquis Starter Pack See Taper PO DIRECTED 02/22/23 02/22/23 History (for VTE)] Allergies Allergy/AdvReac Type Severity Reaction Status Date / Time amoxicillin Allergy Itching Verified 02/22/23 07:48 Physical Exam Vitals: Vital Signs Temp Pulse Pulse Resp BP BP Pulse Ox 02/22/23 13:46 97.0 F L 66 17 140/66 97 02/22/23 13:39 78 18 136/82 97 02/22/23 12:01 63 18 135/80 97 02/22/23 09:58 76 16 140/70 98 02/22/23 09:00 60 16 144/76 98 02/22/23 07:28 60 16 148/79 98 02/22/23 06:48 60 18 149/83 98 02/22/23 03:53 65 18 131/77 98 02/22/23 01:45 61 18 154/79 95 02/21/23 21:29 98.1 F 74 18 146/79 99 Intake and Output 02/22/23 02/22/23 02/22/23 06:59 14:59 22:59 Intake Total 240 Balance 240 Intake: Oral 240 Other: # Voids 1 Weight 102.058 kg PHYSICAL EXAM: VITAL SIGNS: [As above] GENERAL: Pleasant 73-year-old gentleman, alert and oriented 3,NAD HEENT: Normocephalic Conjunctivae normal. eyes normal. NECK: Supple, No JVD. No thyroid enlargement. No LNs CARDIOVASCULAR: S1, S2 regular.. No murmur RESPIRATION: Unlabored, equal air entry Breath sounds diminished in the bases. No rhonchi or crackles. No bronchial breathing. ABDOMEN: Soft, nontender . No guarding. no masses palpable. +BS EXTREMITIES: Right knee extending to calf edema, limited range of motion, positive DP pulse NERVOUS SYSTEM: Cranial N 2-12 grossly normal. No focal deficits. Strength and sensation grossly intact. Skin: Warm and dry, no rash Results CBC & Chem 7: 02/21/23 21:50 02/21/23 21:50 Labs: Abnormal Lab Results - Last 24 Hours (Table) 02/21/23 02/21/23 02/21/23 Range/Units 21:50 21:50 22:00 WBC 10.8 H (3.8-10.6) k/uL Neutrophils # 8.3 H (1.3-7.7) k/uL Sodium 134 L (137-145) mmol/L Carbon Dioxide 18 L (22-30) mmol/L Glucose 114 H (74-99) mg/dL Plasma Lactic Acid Felix 4.7 H* (0.7-2.0) mmol/L Creatine Kinase 218 H (55-170) U/L Assessment and Plan Assessment: Right knee pain secondary to increased large right knee effusion, status post right knee arthroscopy,POD#5 Right lower extremity DVT, postop Right knee osteoarthritis Lactic acidosis, resolved with IV fluid hydration Leukocytosis, minimal, reactive Former nicotine dependence Plan: Continue on current medication regime ,monitoring and symptomatic treatment. Pain management, anticoagulation , potential aspiration as per orthopedic surgery. Maintain gentle IV fluid hydration. PPI ordered for GI prophylaxis. The impression and plan of care has been dictated as directed. : I performed a history and examination of this patient, discussed the same with the dictator. I agree with the dictator's note ,documented as a scribe. Any additional findings or plans will be noted.
[2023-02-22] MEDS: APIXABAN 5 MG TAB PO SCH (20:49)
[2023-02-22 20:54] VITALS: RESP 18
[2023-02-23] MEDS: SODIUM CHLORIDE 0.9% 1,000 ML IV SCH (05:39)
[2023-02-23] MEDS: CYCLOBENZAPRINE 10 MG TAB PO SCH (09:11)
[2023-02-23] MEDS: APIXABAN 5 MG TAB PO SCH (09:11)
[2023-02-23] MEDS: PANTOPRAZOLE 40 MG/10 ML VIAL IVP SCH (09:11)
[2023-02-23 09:14] VITALS: BP 121/70; PULSE 65; TEMP 98.7
--- NOTE | 2023-02-23 11:27 | P.PN ---
Subjective Progress Note Date: 02/23/23 Principal diagnosis: Postoperative pain, status post right knee arthroscopy, right lower extremity DVT Patient was evaluated at bedside today, he is resting in his hospital bed. Patient appears alert more comfortable compared to yesterday. He states the swelling in the knee is much better and more comfortable. Patient is hoping to get up with crutches today prior to getting out of the hospital. Currently has no headaches, lightheadedness, chest pain or shortness of breath. Objective - Vital Signs Vital signs: Vital Signs Temp 98.7 F 02/23/23 09:05 Pulse 65 02/23/23 09:05 Resp 18 02/23/23 09:05 BP 121/70 02/23/23 09:05 Pulse Ox 96 02/23/23 09:05 FiO2 Intake & Output 02/22/23 02/23/23 02/23/23 18:59 06:59 18:59 Intake Total 240 600 Balance 240 600 Intake: Oral 240 600 Other: Voiding Method Toilet Toilet # Voids 1 - Exam Right lower extremity: Obvious effusion present on the right knee, generalized swelling throughout the right lower extremity especially in the calf. Portal sites are healing well, good scab formation. There is no drainage visualized, there is no erythema Notable swelling is present in the extremity, especially the calf. There is some tenderness with palpation to the calf. The compartments of the lower leg both anterior, lateral and posterior all soft and compressible, this is also present in the proximal aspect of the extremity Range of motion is difficult both passive and actively due to swelling and discomfort with regards to the knee. Plantar flexion, dorsiflexion, EHL, FHL are intact Internal and external rotation of the hip reproduces no groin pain Sensory exam light touch is intact throughout the extremity Dorsalis pedis pulses 2+ - Labs CBC & Chem 7: 02/21/23 21:50 02/21/23 21:50 Assessment and Plan Assessment: Right knee pain Right knee effusion Right lower extremity DVT Postoperative day #6 status post right knee arthroscopy Right knee osteoarthritis Other medical comorbidities Plan: Patient is doing a lot better today, would recommend continuing current medications. Plan for discharge on [place] 7.5 mg/325 mg and Flexeril 10 mg. Icing and elevating techniques were again discussed today at bedside DVT prophylaxis, continue current oral anticoagulant Weightbearing status, weight-bear as tolerated. Utilize crutches as needed Medical recommendations appreciated Orthopedically the patient is stable for discharge and follow-up in outpatient setting Time with Patient: Less than 30
--- NOTE | 2023-02-23 17:03 | P.DS ---
Providers Date of admission: 02/22/23 01:00 Expected date of discharge: 02/23/23 Attending physician: Carlos Cervantes Consults: 02/22/23 01:03 Consult Physician Routine Consulting Provider: Jason Cedeño Consult Reason/Comments: post op pain Do you want consulting provider notified?: Yes Primary care physician: Carlos Cervantes Hospital Course: Final Diagnoses: Right knee pain secondary to increased large right knee effusion, status post right knee arthroscopy,POD#5 Right lower extremity DVT, postop Right knee osteoarthritis Lactic acidosis, resolved with IV fluid hydration Leukocytosis, minimal, reactive Former nicotine dependence Hospital Course: This is a 73-year-old gentleman, recently completed right knee arthroscopy on 02/17/2023. Post surgery patient was also diagnosed with DVT and started on Eliquis prior to admission. Continues to have significant right knee pain, unrelieved with his current pain management regimen and proceeded to the ER. Denies fever or chills. Afebrile, WBC 10.8. Denies chest pain, palpitations or shortness of breath. Maintaining O2 sats in the high 90s on room air. Plasma lactic acid 4.7 on admission, down to 0.8 currently. C reatinine kinase 218. Knee x-ray reported large suprapatellar joint effusion more prominent from prior study. Pain management, anticoagulation , potential aspiration as per orthopedic surgery. Maintain gentle IV fluid hydration. PPI ordered for GI prophylaxis. Further adjustment in pain management as per orthopedic surgery, in addition to icing and elevating with significant clinical improvement. Patient much more comfortable, decreased edema of the affected extremity and reports pain improved. Denies chest pain, palpitations or shortness of breath. Denies lightheadedness dizziness or focal deficits. Patient will be discharged home today in a stable condition with guarded prognosis pending final DC recommendations/pain management/anticoagulation and DC clearance per orthopedic surgery. The impression and plan of care has been dictated as directed. : I performed a history and examination of this patient, discussed the same with the dictator. I agree with the dictator's note ,documented as a scribe. Any additional findings or plans will be noted. Patient Condition at Discharge: Stable Plan - Discharge Summary Discharge Rx Participant: No New Discharge Prescriptions: New Cyclobenzaprine [Flexeril] 10 mg PO BID PRN #21 tablet PRN Reason: Muscle Spasm HYDROcodone/APAP 7.5-325MG [[place] 7.5] 1 each PO Q6HR PRN #28 tab PRN Reason: Pain Sennosides-Docusate Sodium [Senokot-S] 2 tab PO HS #1 tablet Continue Glucosam/Julio Cesar-Msm1/C/George/Bosw [Glucosamine-Chondroitin Tablet] 1 tab PO DAILY Rosuvastatin Calcium 5 mg PO HS Apixaban [Eliquis Starter Pack (for VTE)] See Taper PO DIRECTED Discontinued traMADol HCl [Ultram] 50 mg PO Q6H PRN #12 tab PRN Reason: Pain HYDROcodone/APAP 5-325MG [[place] 5-325] 1 tab PO Q6HR PRN #20 tab PRN Reason: Pain Discharge Medication List Glucosam/Julio Cesar-Msm1/C/George/Bosw [Glucosamine-Chondroitin Tablet] 1 tab PO DAILY 04/29/18 [History] Rosuvastatin Calcium 5 mg PO HS 02/11/23 [History] Apixaban [Eliquis Starter Pack (for VTE)] See Taper PO DIRECTED 02/22/23 [History] Cyclobenzaprine [Flexeril] 10 mg PO BID PRN #21 tablet 02/23/23 [Rx] HYDROcodone/APAP 7.5-325MG [[place] 7.5] 1 each PO Q6HR PRN #28 tab 02/23/23 [Rx] Sennosides-Docusate Sodium [Senokot-S] 2 tab PO HS #1 tablet 02/23/23 [Rx] Follow up Appointment(s)/Referral(s): Carlos Cervantes DO [Primary Care Provider] - 02/25/23 1:20 pm Bhupinder Quintanilla PAC [PHYSICIAN CLINICAL PSYCHOLOGIST] - 03/05/23 9:30 am (Office closed for lunch at time of discharge. Please schedule own follow-up appt. ) Patient Instructions/Handouts: Hydrocodone/Acetaminophen (By mouth), Cyclobenzaprine (By mouth), Senna (By mouth), Deep Vein Thrombosis (DC) Activity/Diet/Wound Care/Special Instructions: Orthopedic discharge instructions: 1. Ice and elevate often 2. Crutches as needed 3. Pain medication as needed 4. Okay to shower directly over the incisions, avoid soaking and use of lotion directly over portal sites 5. Plan for [facility] 1 week Discharge Disposition: HOME SELF-CARE
== END 2023-02-23 14:02 | disposition home or self-care (01) ==
LOC: EC 21:10 → 6NMEDSUR 02-22 01:00 → 1SOBS 02-22 12:39
PROVIDERS: ADMIT Family Medicine; ATTEND Family Medicine
DX: I82.401 Acute embolism and thrombosis of unspecified deep veins of right lower extremity (principal); M17.11 Unilateral primary osteoarthritis, right knee; E87.20 Acidosis, unspecified; D72.829 Elevated white blood cell count, unspecified; Z98.890 Other specified postprocedural states; Z87.891 Personal history of nicotine dependence; Z79.899 Other long term (current) drug therapy; Z88.0 Allergy status to penicillin
CPT/HCPCS: 96361 ×2; 96376 ×3; 96374; 96375; 99285; 36415; 80053; 82550; 83605 ×2; 85025; 73562; G0378 ×2; J1170 ×3; C9113 ×2